=== PATIENT | female | born 1965 | race Caucasian/White ===

== ENCOUNTER 2019-05-28 10:08 | Emergency (ER) | payer BC ==
--- NOTE | 2019-05-28 10:12 | PDOC ---
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 The pain remained severe for approximately 40 minutes, and then subsided. She took 3 baby aspirin's immediately and lay down in the nurse's office at school. She was encouraged by the nurse to come to the ER for evaluation. There was no radiation of the pain to the shoulder, arm, neck or jaw. There was no nausea or diaphoresis. There was no shortness of breath Review of systems: As above. In addition, there is been no recent fever or chills, URI symptoms, sore throat, cough, shortness of breath, abdominal pain, nausea, vomiting, diarrhea, visual or focal neurologic symptoms, unsteadiness of gait. No urinary tract symptoms, vaginal bleeding or discharge. Patient is postmenopausal for several years but takes no hormones Past medical history: Elevated cholesterol, chronic wrist pain. Takes Crestor and meloxicam as needed. Denies prior heart disease, NM, CVA, TIA, PVD, diabetes. Social history: Long history of smoking cigarettes heavily until 2 years ago, when she stopped. However she continues to vape. Occasional social alcohol, none recently, no other drugs. Fully active and without disability. 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 Considerable stress from disabled children. Family history: Mother of leukemia at an old age. Did not know her father. Siblings without cardiac or other disease. Physical exam: Alert and oriented well-developed well-nourished no acute distress cheerful and cooperative. Denies pain at present, though her left parasternal area is tender to palpation Afebrile, vital signs normal PERRLA, fundi benign, ENT clear Neck supple without bruit mass or nodes Lungs clear with full breath sounds bilaterally, no wheezes rales or rhonchi There is tenderness along the left sternal border to palpation, mid sternum over the parasternal cartilages, that reproduces the patient's original pain. CV S1-S2 normal without murmur rub or gallop pulses full and symmetric no JVD or edema no bruits Abdomen nondistended, bowel sounds normal, soft without mass tenderness organomegaly Extremities no CCE Skin clear, no rash, adequate turgor and wet mucous membranes Neurological C2 to 12 intact. Strength full and symmetric. No focal sensorimotor deficits. Gait stable and unimpaired. Cerebellar function intact EKG: Normal sinus rhythm 70/min. Normal axes and intervals. No ST-T wave changes. Normal EKG Impression: Chest wall pain, costochondritis, possibly related to smoking/ vaping. Cholesterol and tobacco risks for CAD. Plan: EKG and enzymes, CBC and chemistries, further evaluation and treatment depending on results. However, unlikely that this is cardiac in origin, given the nature of the pain and chest wall tenderness. Past History - Past Medical History Allergies/Adverse Reactions: Allergies Allergy/AdvReac Type Severity Reaction Status Date / Time Penicillins Allergy Intermediate Swelling Verified 05/28/19 10:10 Sulfa (Sulfonamide Allergy Mild Itching Verified 05/28/19 10:11 Antibiotics) Home Medications: Ambulatory Orders Meloxicam 15 mg PO PRN 05/28/19 Rosuvastatin Calcium [Crestor] 10 mg PO DAILY 05/28/19 *Physical Exam - Vital Signs Last Vital Signs Temp Pulse Resp BP Pulse Ox 98.4 F 69 16 133/81 99 05/28/19 10:10 05/28/19 10:10 05/28/19 10:10 05/28/19 10:37 05/28/19 10:10 ED Treatment Course - LABORATORY CBC & Chemistry Diagram: 05/28/19 10:50 05/28/19 10:50 - ADDITIONAL ORDERS Additional order review: Laboratory Results 05/28/19 05/28/19 10:50 10:50 Sodium 139 Potassium 4.2 Chloride 108 H Carbon Dioxide 24 Anion Gap 7 L BUN 18.0 Creatinine 0.6 Est GFR (CKD-EPI)AfAm 118.93 Est GFR (CKD-EPI)NonAf 102.61 Random Glucose 91 Calcium 9.5 Total Bilirubin 0.3 AST 20 ALT 23 Alkaline Phosphatase 106 Creatine Kinase 87 Troponin I < 0.03 Total Protein 7.1 Albumin 4.1 05/28/19 10:50 RBC 4.82 MCV 90.0 MCHC 32.1 RDW 12.7 MPV 7.4 L Neutrophils % 57.2 Lymphocytes % 33.2 Monocytes % 6.0 Eosinophils % 2.9 Basophils % 0.7 Medical Decision Making - Medical Decision Making 05/28/19 11:50 EKG normal Cardiac enzymes negative. The nature of the pain and physical findings make it likely that pain is due to costochondritis. Patient advised to cut down on smoking, use anti-inflammatory medication, and follow-up with primary physician. Return to ER if symptoms worsen or additional symptoms develop. Fully ambulatory and in no pain at discharge to follow-up as directed Discharge - Discharge Information Problems reviewed: Yes Clinical Impression/Diagnosis: Acute costochondritis Condition: Stable Disposition: HOME - Admission No - Follow up/Referral Referrals: Masoud Dorsey MD [Primary Care Provider] - - Patient Discharge Instructions Patient Printed Discharge Instructions: DI for Costochondritis Additional Instructions: Try to reduce vaping. Take Motrin or Aleve for discomfort. Return to ER if symptoms worsen or additional symptoms develop. Otherwise follow-up with primary physician. - Post Discharge Activity Work/Back to School Note: Back to Work
[2019-05-28 10:30] VITALS: BP 133/81; PULSE 69; TEMP 98.4; BMI 26.5
[2019-05-28 11:13] LABS: BASO % 0.7 % (0-2.0); EOS % 2.9 % (0-4.5); HEMATOCRIT 43.4 % (32.4-45.2); HEMOGLOBIN 13.9 GM/dl (10.7-15.3); LYMPH % 33.2 % (8-40); MCH 28.9 pg (25.7-33.7); MCHC 32.1 g/dl (32.0-36.0); MEAN PLT VOLUME 7.4 fl (7.5-11.1); NEUT % 57.2 % (42.8-82.8); PLATELET COUNT 367 K/MM3 (134-434); RBC 4.82 M/mm3 (3.60-5.2); RDW 12.7 % (11.6-15.6); WHITE BLOOD COUNT 7.6 K/mm3 (4.0-10.8)
[2019-05-28 11:21] LABS: ALBUMIN 4.1 g/dl (3.4-5.0); BILIRUBIN,TOTAL 0.3 mg/dl (0.2-1); CALCIUM 9.5 mg/dl (8.5-10); CREATININE 0.6 mg/dl (0.55-1.3); POTASSIUM 4.2 mmol/L (3.5-5.1); TOT PROT 7.1 g/dl (6.4-8.2)
--- NOTE | 2019-05-28 12:29 | EKG ---
Test Reason : Blood Pressure : / mmHG Vent. Rate : 070 BPM Atrial Rate : 070 BPM P-R Int : 158 ms QRS Dur : 090 ms QT Int : 398 ms P-R-T Axes : 058 077 057 degrees QTc Int : 429 ms NORMAL SINUS RHYTHM NORMAL ECG NO PREVIOUS ECGS AVAILABLE Confirmed by MD Sindhu, Walter ([id number]) on 05/28/2019 12:29:12 PM Referred By: PEPPER PARNELL Confirmed By:Walter Manley MD
== END 2019-05-28 11:54 | disposition home or self-care (01) ==
LOC: FER 10:08
DX: M94.0 Chondrocostal junction syndrome [Tietze] (principal); Z88.0 Allergy status to penicillin; Z88.2 Allergy status to sulfonamides; Z87.891 Personal history of nicotine dependence
CPT/HCPCS: 36415; 80053; 82550; 84484; 85025; 93005; 99284-25

== ENCOUNTER 2020-11-24 14:47 | Emergency (ER) | payer BC ==
[2020-11-24 15:34] VITALS: BP 122/83; PULSE 91; TEMP 98.5; BMI 24.3
== END 2020-11-24 16:47 | disposition left against medical advice (07) ==
LOC: JCOVINFU 14:47
DX: U07.1 COVID-19 (principal)
CPT/HCPCS: 99281-25